=== PATIENT | male | born 1955 | race African-American/Black ===

== ENCOUNTER 2018-01-07 22:12 | Emergency (ER) | payer OTHER ==
[2018-01-07 22:27] VITALS: BP 148/79; PULSE 96; TEMP 98.3; BMI 28.3
--- NOTE | 2018-01-07 22:47 | PDOC ---
History of Present Illness - General Chief Complaint: Injury Stated Complaint: FALL Time Seen by Provider: 01/07/18 22:46 - History of Present Illness Initial Comments: 01/07/18 22:46 62 yo M ith h/o DM, and HTN who p/w closed head injury s/p fall. Patient reports being on all four extremities coughing, clear, sputum into toilet, when he slipped and hit the right frontal side of his head on the toilet bowel. Denies LOC. Was on ground for two minutes, before getting up and ambulating to the bed. Currently asymptomatic. Denies h/o recent falls. Currently not anticoagulated. Patient denies HELM, tinnitus, hearing loss, vision change, N/V, F,C, wheezing, palpitations, CP, SOB, urinary complaints, abdominal pain, diarrhea, constipation, lightheadedness, weakness, sensory changes. PMHx: as noted above ROS: as noted SHx: 1 ppd tobacco use x 45 years. Denies Etoh, IVDA. Allergies: NKDA Past History - Past Medical History Allergies/Adverse Reactions: Allergies Allergy/AdvReac Type Severity Reaction Status Date / Time No Known Allergies Allergy Verified 01/07/18 22:25 Diabetes: Yes HTN: Yes Hypercholesterolemia: Yes - Suicide/Smoking/Psychosocial Hx Smoking Status: Yes Smoking History: Never smoked Have you smoked in the past 12 months: No Number of Cigarettes Smoked Daily: 7 Information on smoking cessation initiated: No Hx Alcohol Use: No Drug/Substance Use Hx: No Review of Systems - Review of Systems Comments:: 01/07/18 22:47 GENERAL/CONSTITUTIONAL: No fever or chills. No weakness. HEAD, EYES, EARS, NOSE AND THROAT: No change in vision. No ear pain or discharge. No sore throat. CARDIOVASCULAR: No chest pain or shortness of breath RESPIRATORY: No cough, wheezing, or hemoptysis. GASTROINTESTINAL: No nausea, vomiting, diarrhea or constipation. GENITOURINARY: No dysuria, frequency, or change in urination. MUSCULOSKELETAL: No joint or muscle swelling or pain. No neck or back pain. SKIN: No rash NEUROLOGIC: No headache, vertigo, loss of consciousness, or change in strength/ sensation. ENDOCRINE: No increased thirst. No abnormal weight change HEMATOLOGIC/LYMPHATIC: No anemia, easy bleeding, or history of blood clots. ALLERGIC/IMMUNOLOGIC: No hives or skin allergy. *Physical Exam - Vital Signs Last Vital Signs Temp Pulse Resp BP Pulse Ox 98.3 F 96 H 18 148/79 97 01/07/18 22:25 01/07/18 22:25 01/07/18 22:25 01/07/18 22:25 01/07/18 22:25 - Physical Exam Comments: 01/07/18 22:47 GENERAL: Awake, alert, and fully oriented, in no acute distress HEAD: No signs of trauma, normocephalic, atraumatic EYES: PERRLA, EOMI, sclera anicteric, conjunctiva clear ENT: Auricles normal inspection, hearing grossly normal, nares patent, oropharynx clear without exudates. Moist mucosa NECK: Normal ROM, supple, no lymphadenopathy, JVD, or masses LUNGS: No distress, speaks full sentences, clear to auscultation bilaterally HEART: Regular rate and rhythm, normal S1 and S2, no murmurs, rubs or gallops, peripheral pulses normal and equal bilaterally. EXTREMITIES : Normal inspection, Normal range of motion, no edema. No clubbing or cyanosis. NEUROLOGICAL: Cranial nerves II through XII grossly intact. Normal speech, no focal sensorimotor deficits, neg dysmetria on FTN SKIN: Warm, Dry, normal turgor, no rashes or lesions noted Medical Decision Making - Medical Decision Making 01/07/18 22:53 62 yo M ith h/o DM, and HTN who p/w closed head injury s/p fall. VSS, AF. Physical exam unremarkable. No evidence of head injury. CTH r/o intracranial hemmohrage, hematoma, or skull fracture. No evidence of basilar skull frx. Nexus Negative C-SPINE. No evidence of maxillofacial injury. ED Course: CTH Patient denies pain, and able to ambulate w/out difficulty. 01/08/18 00:10 CTH: Neg Patient stable for d/c with return precautions. *DC/Admit/Observation/Transfer Diagnosis at time of Disposition: Closed head injury Qualifiers: Encounter type: initial encounter Qualified Code(s): S09.90XA - Unspecified injury of head, initial encounter - Discharge Dispostion Disposition: HOME Condition at time of disposition: Stable Decision to Admit order: No - Referrals - Patient Instructions Printed Discharge Instructions: DI for Closed Head Injury Additional Instructions: Please return to the emergency department with any new or worsening symptoms or concerns. Please follow up with your primary care physician within 72 hours. - Post Discharge Activity - Attestations Physician Attestion: 01/07/18 22:47 I attest to the information provided in this note.
--- NOTE | 2018-01-08 00:08 | PDOC ---
Attending Attestation - Resident Resident Name: Bert Hsu - ED Attending Attestation I have performed the following: I have examined & evaluated the patient, The case was reviewed & discussed with the resident, I agree w/resident's findings & plan, Exceptions are as noted - HPI HPI: 01/08/18 00:51 Mr Rahman is a 62 yo M who presents for evaluation of head trauma He was at home this evening and began coughing His head went forward and he struck his forehead on the toilet No LOC No amnesia No laceration - Physicial Exam PE: 01/08/18 00:54 GENERAL: Awake, alert, and fully oriented, in no acute distress EYES: PERRLA, EOMI NECK: Normal ROM, supple, no midline tenderness to palpation LUNGS: No distress, speaks full sentences, clear to auscultation bilaterally HEART: Regular rate and rhythm, normal S1 and S2, no murmurs, rubs or gallops EXTREMITIES : Normal inspection, Normal range of motion NEUROLOGICAL: Cranial nerves II through XII grossly intact. Normal speech, no focal sensorimotor deficits SKIN: Warm, Dry, normal turgor, no rashes or lesions noted - Medical Decision Making 01/08/18 00:11 CT performed given age No anticoagulants No midline neck pain, stiffness No acute brain parenchymal abnormality. No hemorrhage, mass or acute territorial infarct. Age-related involutional changes and chronic small vessel ischemic changes. No skull fracture. Clear visualized paranasal sinuses. Visualized mastoid air cells clear. Will discharge to home Follow up with PMD return to the ER for any other concerns or complaints 01/08/18 00:55
== END 2018-01-08 02:23 | disposition home or self-care (01) ==
LOC: JER 22:12
DX: S09.8XXA Other specified injuries of head, initial encounter (principal); W01.198A Fall on same level from slipping, tripping and stumbling with subsequent striking against other object, initial encounter; Y93.89 Activity, other specified; Y92.091 Bathroom in other non-institutional residence as the place of occurrence of the external cause; Y99.8 Other external cause status; I10 Essential (primary) hypertension; E11.9 Type 2 diabetes mellitus without complications; E78.00 Pure hypercholesterolemia, unspecified
CPT/HCPCS: 70450-TC; 99281-25